=== PATIENT | male | born 1970 | race African-American/Black ===

== ENCOUNTER 2019-04-02 18:44 | Inpatient (IN) | payer MEDICAID ==
[~2019-04-02] VITALS: Ht 182.9 cm; Wt 63.5 kg
[2019-04-02] MEDS ORDERED: DILTIAZEM HCL 5MG/ML 5ML VIAL IV ONE ×3 (19:00→19:15)
[2019-04-02] MEDS ORDERED: ONDANSETRON HCL 4MG/2ML INJ ONE (19:02)
[2019-04-02] MEDS ORDERED: ONDANSETRON HCL 4MG/2ML INJ IV STA (19:14)
[2019-04-02] MEDS ORDERED: MORPHINE SULFATE 4 MG/ML CPJ (NOT FOR IM USE) IV STA (19:14)
[2019-04-02] MEDS ORDERED: PIPERACILLIN/TAZ 3.375G PREMIX 50 ML IV ONE (19:15)
[2019-04-02] MEDS ORDERED: VANCOMYCIN 1 G PREMIX 200 ML IV ONE (19:15)
[2019-04-02] MEDS ORDERED: SODIUM CHLORIDE 0.9% 1000ML BAG (SEPSIS BOLUS) IV ONE (19:15)
[2019-04-02] MEDS ORDERED: DILTIAZEM HCL 60MG TABLET PO ONE (19:30)
[2019-04-02 19:37] LABS: BASOPHILS % 0.4 % (0.0-2.0); CHLORIDE 100 mEq/L (98-107); HEMATOCRIT. 38.1 % (42.0-52.0); HEMOGLOBIN. 12.5 g/dL (14.0-18.0); LYMPHOCYTES % 7.8 % (20.0-50.0); MEAN CORPUSCULAR HEMOGLOBIN 30.7 pg (28.0-32.0); MEAN CORPUSCULAR VOLUME 93.3 fL (80.0-94.0); MEAN PLATELET VOLUME 9.8 fl (7.4-10.4); MONOCYTES % 9.3 % (2.0-8.0); NEUTROPHILS % 82.5 % (40.0-76.0); PLATELET 322 x1000/uL (130-400); RED BLOOD CELL COUNT 4.08 mill/uL (4.7-6.1); RED CELL DISTRIBUTION WIDTH 13.9 % (11.6-14.6)
[2019-04-02 19:39] LABS: INR 1.1; PARTIAL THROMBOPLASTIN TIME 30.8 sec (23.4-31.0); PROTHROMBIN TIME 11.4 sec (9.6-11.0)
[2019-04-02] MEDS ORDERED: POTASSIUM CHLORIDE 20MEQ TABLET SR PO ONE (20:45)
[2019-04-02] MEDS ORDERED: SODIUM CHLORIDE 0.9% 1,000 ML IV ONE ×2 (21:27→22:01)
[2019-04-02 22:49] LABS: *AMPHETAMINES SCREEN URINE NEGATIVE (NEGATIVE); *BARBITURATES SCREEN URINE NEGATIVE (NEGATIVE); *BENZODIAZEPINES SCREEN URINE NEGATIVE (NEGATIVE); *COCAINE SCREEN URINE NEGATIVE (NEGATIVE); CLARITY URINE TURBID (CLEAR); COLOR URINE YELLOW (YELLOW); KETONES URINE TRACE (NEGATIVE); LEUKOCYTE ESTERASE URINE 2+ (NEGATIVE); METHADONE URINE SCREEN NEGATIVE (NEGATIVE); NITRITE URINE POSITIVE (NEGATIVE); OCCULT BLOOD URINE 1+ (NEGATIVE); OPIATES URINE SCREEN PRESUMTIVE POSITIVE (NEGATIVE); PH URINE 5.5 (4.5-8.0); PROTEIN URINE TRACE (NEGATIVE); SPECIFIC GRAVITY URINE 1.015 (1.005-1.030)
[2019-04-02 22:50] LABS: CANNABINOID URINE SCREEN PRESUMTIVE POSITIVE (NEGATIVE); PHENCYCLIDINE URINE SCREEN PRESUMTIVE POSITIVE (NEGATIVE)
[2019-04-03] VITALS (13 sets, daily range): BP systolic 94–111; BP diastolic 45–65
[2019-04-03] MEDS: MORPHINE SULFATE 2 MG/ML CPJ (NOT FOR IM USE) IV PRN ×4 (01:23→19:02)
[2019-04-03] MEDS ORDERED: GABA-529 MT (04:48)
[2019-04-03] MEDS ORDERED: OXYC-100 MT (04:48)
[2019-04-03 06:50] LABS: BASOPHILS % 0.4 % (0.0-2.0); EOSINOPHILS % 0.1 % (0.0-5.0); HEMATOCRIT. 28.2 % (42.0-52.0); HEMOGLOBIN. 9.3 g/dL (14.0-18.0); LYMPHOCYTES % 8.8 % (20.0-50.0); MEAN CORPUSCULAR HEMOGLOBIN 30.9 pg (28.0-32.0); MEAN CORPUSCULAR VOLUME 93.7 fL (80.0-94.0); NEUTROPHILS % 81.7 % (40.0-76.0); PLATELET 218 x1000/uL (130-400); RED BLOOD CELL COUNT 3.01 mill/uL (4.7-6.1); RED CELL DISTRIBUTION WIDTH 13.7 % (11.6-14.6)
[2019-04-03 06:52] LABS: CHLORIDE 109 mEq/L (98-107)
[2019-04-03] MEDS ORDERED: PIPERACILLIN/TAZOBACTAM 3.375 G in DEXT 5% WATER 100 ML IV SCH (07:00)
[2019-04-03] MEDS ORDERED: ACETAMINOPHEN 325MG TABLET PO PRN (07:00)
[2019-04-03] MEDS ORDERED: POTASSIUM CHLORIDE 20MEQ TABLET SR PO NR (07:11)
[2019-04-03] MEDS ORDERED: VANCOMYCIN 1 G PREMIX 200 ML IV SCH (08:30)
[2019-04-03] MEDS: PIPERACILLIN/TAZOBACTAM 3.375 G in DEXT 5% WATER 100 ML IV SCH ×3 (08:39→22:03)
[2019-04-03] MEDS ORDERED: ASPIRIN 325MG EC TABLET PO SCH (09:00)
[2019-04-03] MEDS ORDERED: METOPROLOL TARTRATE 50MG TABLET PO SCH (09:00)
[2019-04-03] MEDS ORDERED: DIGOXIN 500MCG/2ML AMP IV SCH (11:15)
[2019-04-03] MEDS ORDERED: IPRATROPIUM BROMIDE (0.02%) 0.5MG/2.5ML NEB HHN PRN (12:00)
[2019-04-03] MEDS: DILTIAZEM HCL 30MG TABLET PO SCH ×2 (12:55→19:05)
[2019-04-03] MEDS ORDERED: DIGOXIN 500MCG/2ML AMP IV PRN (13:30)
[2019-04-03] MEDS: VANCOMYCIN 1 G PREMIX 200 ML IV SCH (18:52)
[2019-04-03] MEDS: DIGOXIN 500MCG/2ML AMP IV SCH (19:04)
[2019-04-03] MEDS: METOPROLOL TARTRATE 25MG TABLET PO SCH (21:54)
[2019-04-04] VITALS (11 sets, daily range): BP systolic 97–119; BP diastolic 52–83
[2019-04-04] MEDS: DILTIAZEM HCL 30MG TABLET PO SCH ×4 (00:25→18:00)
[2019-04-04] MEDS: VANCOMYCIN 1 G PREMIX 200 ML IV SCH (02:00)
[2019-04-04] MEDS: PIPERACILLIN/TAZOBACTAM 3.375 G in DEXT 5% WATER 100 ML IV SCH ×3 (02:43→18:09)
[2019-04-04 06:35] LABS: CHLORIDE 103 mEq/L (98-107)
[2019-04-04 06:38] LABS: BASOPHILS % 0.6 % (0.0-2.0); EOSINOPHILS % 1.7 % (0.0-5.0); LYMPHOCYTES % 12.9 % (20.0-50.0); MEAN CORPUSCULAR HEMOGLOBIN 30.5 pg (28.0-32.0); MEAN CORPUSCULAR VOLUME 92.4 fL (80.0-94.0); MONOCYTES % 9.5 % (2.0-8.0); NEUTROPHILS % 75.3 % (40.0-76.0); PLATELET 278 x1000/uL (130-400); RED CELL DISTRIBUTION WIDTH 13.7 % (11.6-14.6)
[2019-04-04 06:43] LABS: HEMATOCRIT. 32.4 % (42.0-52.0); HEMOGLOBIN. 10.7 g/dL (14.0-18.0)
[2019-04-04] MEDS ORDERED: POTASSIUM CHLORIDE 20MEQ/PACKET PO SCH (07:15)
[2019-04-04] MEDS: METOPROLOL TARTRATE 25MG TABLET PO SCH ×2 (09:00→20:56)
[2019-04-04] MEDS ORDERED: LORAZEPAM 2MG/ML CPJ IV SCH (10:45)
[2019-04-04] MEDS ORDERED: SODIUM BICARBONATE 4% (2.4MEQ) 5ML VIAL IV ONE (14:30)
[2019-04-04] MEDS ORDERED: LIDOCAINE HCL 1% 20ML VIAL (Pyxis) INJ ONE (14:31)
[2019-04-04] MEDS: VANCOMYCIN 1250MG in DEXTROSE 5% WATER 250ML IV SCH ×2 (15:37→22:40)
[2019-04-04] MEDS: MORPHINE SULFATE 2 MG/ML CPJ (NOT FOR IM USE) IV PRN ×2 (15:39→22:54)
[2019-04-04] MEDS: DIGOXIN 500MCG/2ML AMP IV SCH (18:09)
[2019-04-04] MEDS: MUPIROCIN 2% OINT 22GM NS SCH (20:57)
[2019-04-05] VITALS (20 sets, daily range): BP systolic 94–165; BP diastolic 52–108
[2019-04-05] MEDS: PIPERACILLIN/TAZOBACTAM 3.375 G in DEXT 5% WATER 100 ML IV SCH ×3 (00:13→10:55)
[2019-04-05] MEDS: DILTIAZEM HCL 30MG TABLET PO SCH ×5 (00:20→22:03)
[2019-04-05] MEDS: VANCOMYCIN 1250MG in DEXTROSE 5% WATER 250ML IV SCH ×3 (06:07→22:35)
[2019-04-05 07:01] LABS: BASOPHILS % 0.8 % (0.0-2.0); EOSINOPHILS % 1.6 % (0.0-5.0); LYMPHOCYTES % 12.8 % (20.0-50.0); MEAN CORPUSCULAR HEMOGLOBIN 30.8 pg (28.0-32.0); MEAN PLATELET VOLUME 9.2 fl (7.4-10.4); MONOCYTES % 10.7 % (2.0-8.0); NEUTROPHILS % 74.1 % (40.0-76.0); PLATELET 289 x1000/uL (130-400); RED BLOOD CELL COUNT 3.26 mill/uL (4.7-6.1); RED CELL DISTRIBUTION WIDTH 13.3 % (11.6-14.6)
[2019-04-05 07:53] LABS: CHLORIDE 102 mEq/L (98-107)
[2019-04-05] MEDS: METOPROLOL TARTRATE 25MG TABLET PO SCH ×2 (08:55→22:01)
[2019-04-05] MEDS: MUPIROCIN 2% OINT 22GM NS SCH ×2 (08:55→21:58)
[2019-04-05] MEDS: MORPHINE SULFATE 2 MG/ML CPJ (NOT FOR IM USE) IV PRN (09:37)
[2019-04-05] MEDS ORDERED: SODIUM BICARBONATE 4% (2.4MEQ) 5ML VIAL IV ONE (10:19)
[2019-04-05] MEDS ORDERED: LIDOCAINE HCL 1% 20ML VIAL (Pyxis) INJ ONE (10:19)
[2019-04-05] MEDS ORDERED: FENTANYL CITRATE/PF 50MCG/ML 2ML VIAL ONE (13:29)
[2019-04-05] MEDS ORDERED: FENTANYL CITRATE/PF 50MCG/ML 2ML VIAL IV ONE (14:45)
[2019-04-05] MEDS ORDERED: SORBITOL 70% SOLN 30ML PO NR (15:00)
[2019-04-05] MEDS: MEROPENEM 500MG in NORMAL SALINE 50ML IV SCH (18:05)
[2019-04-05] MEDS: DIGOXIN 500MCG/2ML AMP IV SCH (18:06)
[2019-04-05] MEDS: HYDROCODONE/ACETAMINOPHEN 10/325MG TABLET PO PRN (19:01)
[2019-04-06] VITALS: BP 98/56
[2019-04-06 04:00] VITALS: BP 137/65
[2019-04-06 04:32] LABS: BASOPHILS % 0.5 % (0.0-2.0); EOSINOPHILS % 0.9 % (0.0-5.0); HEMOGLOBIN. 10.5 g/dL (14.0-18.0); LYMPHOCYTES % 9.8 % (20.0-50.0); MEAN CORPUSCULAR HEMOGLOBIN 30.2 pg (28.0-32.0); MONOCYTES % 11.1 % (2.0-8.0); NEUTROPHILS % 77.7 % (40.0-76.0); RED BLOOD CELL COUNT 3.48 mill/uL (4.7-6.1); RED CELL DISTRIBUTION WIDTH 13.4 % (11.6-14.6)
[2019-04-06] MEDS: MEROPENEM 500MG in NORMAL SALINE 50ML IV SCH ×3 (05:11→18:34)
[2019-04-06] MEDS: VANCOMYCIN 1250MG in DEXTROSE 5% WATER 250ML IV SCH (05:28)
[2019-04-06] MEDS: DILTIAZEM HCL 30MG TABLET PO SCH ×3 (05:29→18:34)
[2019-04-06 05:39] LABS: MEAN PLATELET VOLUME 9.4 fl (7.4-10.4)
[2019-04-06 05:40] LABS: PLATELET 254 x1000/uL (130-400)
[2019-04-06 08:00] VITALS: BP 119/71
[2019-04-06] MEDS: MUPIROCIN 2% OINT 22GM NS SCH ×2 (09:42→21:51)
[2019-04-06] MEDS: METOPROLOL TARTRATE 25MG TABLET PO SCH ×2 (09:44→20:33)
[2019-04-06] MEDS: MORPHINE SULFATE 2 MG/ML CPJ (NOT FOR IM USE) IV PRN ×2 (10:00→20:32)
[2019-04-06] MEDS ORDERED: POTASSIUM CHLORIDE 20MEQ TABLET SR PO SCH (11:00)
[2019-04-06 12:00] VITALS: BP 120/80
[2019-04-06] MEDS: SODIUM CHLORIDE 0.9% 1,000 ML IV SCH ×2 (12:26→21:52)
[2019-04-06] MEDS: HYDROCODONE/ACETAMINOPHEN 10/325MG TABLET PO PRN (13:50)
[2019-04-06] MEDS: ONDANSETRON HCL 4MG/2ML INJ IV PRN (15:04)
[2019-04-06 16:00] VITALS: BP 107/57
[2019-04-06] MEDS ORDERED: VANCOMYCIN 1 G PREMIX 200 ML IV PRN (18:00)
[2019-04-06] MEDS: DIGOXIN 500MCG/2ML AMP IV SCH (18:34)
[2019-04-06 20:00] VITALS: BP 108/59
[2019-04-07] VITALS (7 sets, daily range): BP systolic 100–128; BP diastolic 48–69
[2019-04-07] MEDS: DILTIAZEM HCL 30MG TABLET PO SCH ×4 (00:31→21:39)
[2019-04-07] MEDS: MEROPENEM 500MG in NORMAL SALINE 50ML IV SCH ×3 (02:06→17:11)
[2019-04-07] MEDS: HYDROCODONE/ACETAMINOPHEN 10/325MG TABLET PO PRN ×2 (02:10→11:48)
[2019-04-07 06:42] LABS: BASOPHILS % 0.6 % (0.0-2.0); EOSINOPHILS % 1.1 % (0.0-5.0); HEMOGLOBIN. 10.3 g/dL (14.0-18.0); LYMPHOCYTES % 7.4 % (20.0-50.0); MEAN CORPUSCULAR HEMOGLOBIN 30.7 pg (28.0-32.0); MEAN CORPUSCULAR VOLUME 92.4 fL (80.0-94.0); MEAN PLATELET VOLUME 8.6 fl (7.4-10.4); MONOCYTES % 11.2 % (2.0-8.0); NEUTROPHILS % 79.7 % (40.0-76.0); PLATELET 390 x1000/uL (130-400); RED BLOOD CELL COUNT 3.36 mill/uL (4.7-6.1); RED CELL DISTRIBUTION WIDTH 13.8 % (11.6-14.6)
[2019-04-07] MEDS: SODIUM CHLORIDE 0.9% 1,000 ML IV SCH ×2 (07:00→13:22)
[2019-04-07 07:52] LABS: DIGOXIN 1.4 ng/mL (0.9-2.0)
[2019-04-07] MEDS: MUPIROCIN 2% OINT 22GM NS SCH ×2 (08:16→21:39)
[2019-04-07] MEDS: MORPHINE SULFATE 2 MG/ML CPJ (NOT FOR IM USE) IV PRN ×2 (08:16→17:06)
[2019-04-07] MEDS: METOPROLOL TARTRATE 25MG TABLET PO SCH ×2 (08:17→21:38)
[2019-04-07] MEDS: ONDANSETRON HCL 4MG/2ML INJ IV PRN (08:33)
[2019-04-07] MEDS ORDERED: SORBITOL 70% SOLN 30ML PO SCH (12:00)
[2019-04-07] MEDS: DOCUSATE SODIUM 250MG CAPSULE PO SCH (13:23)
[2019-04-07] MEDS: ENOXAPARIN 30MG/0.3ML SYR SUBCUT SCH ×2 (15:00→17:11)
[2019-04-07] MEDS ORDERED: DIGOXIN 500MCG/2ML AMP IV SCH (18:00)
[2019-04-07] MEDS ORDERED: NA PHOS,M-B/NA PHOS,DI-BA ENEMA 118ML PR NR (23:00)
[2019-04-08] VITALS (7 sets, daily range): BP systolic 105–132; BP diastolic 55–75
[2019-04-08] MEDS: MEROPENEM 500MG in NORMAL SALINE 50ML IV SCH ×3 (01:07→18:53)
[2019-04-08] MEDS: SODIUM CHLORIDE 0.9% 1,000 ML IV SCH ×2 (01:07→18:58)
[2019-04-08 06:12] LABS: PHOSPHORUS 5.2 mg/dL (2.5-4.9)
[2019-04-08 06:41] LABS: BASOPHILS % 0.7 % (0.0-2.0); EOSINOPHILS % 0.6 % (0.0-5.0); HEMATOCRIT. 31.3 % (42.0-52.0); HEMOGLOBIN. 10.5 g/dL (14.0-18.0); LYMPHOCYTES % 7.6 % (20.0-50.0); MEAN CORPUSCULAR VOLUME 91.9 fL (80.0-94.0); MEAN PLATELET VOLUME 8.4 fl (7.4-10.4); MONOCYTES % 11.1 % (2.0-8.0); PLATELET 415 x1000/uL (130-400); RED BLOOD CELL COUNT 3.41 mill/uL (4.7-6.1); RED CELL DISTRIBUTION WIDTH 13.7 % (11.6-14.6)
[2019-04-08] MEDS: DILTIAZEM HCL 30MG TABLET PO SCH ×3 (06:44→22:47)
[2019-04-08] MEDS: METOPROLOL TARTRATE 25MG TABLET PO SCH ×2 (09:00→21:20)
[2019-04-08] MEDS: ONDANSETRON HCL 4MG/2ML INJ IV PRN (09:39)
[2019-04-08] MEDS: MUPIROCIN 2% OINT 22GM NS SCH ×2 (09:40→21:20)
[2019-04-08] MEDS: DOCUSATE SODIUM 250MG CAPSULE PO SCH (10:54)
[2019-04-08] MEDS: HYDROCODONE/ACETAMINOPHEN 10/325MG TABLET PO PRN (12:58)
[2019-04-08] MEDS ORDERED: LIDOCAINE HCL 1% 20ML VIAL (Pyxis) INJ ONE (14:35)
[2019-04-08] MEDS ORDERED: SODIUM BICARBONATE 4% (2.4MEQ) 5ML VIAL IV ONE (14:35)
[2019-04-08] MEDS: ENOXAPARIN 30MG/0.3ML SYR SUBCUT SCH (15:00)
[2019-04-08 15:33] LABS: CLARITY URINE CLEAR (CLEAR); COLOR URINE YELLOW (YELLOW); KETONES URINE NEGATIVE (NEGATIVE); LEUKOCYTE ESTERASE URINE 1+ (NEGATIVE); NITRITE URINE NEGATIVE (NEGATIVE); OCCULT BLOOD URINE 2+ (NEGATIVE); PROTEIN URINE NEGATIVE (NEGATIVE); SPECIFIC GRAVITY URINE 1.005 (1.005-1.030); UROBILINOGEN URINE 0.2 E.U./dL (0.2-1.0)
[2019-04-08] MEDS: MORPHINE SULFATE 2 MG/ML CPJ (NOT FOR IM USE) IV PRN (21:38)
[2019-04-08] MEDS: LINEZOLID 600MG TABLET PO SCH (22:48)
[2019-04-09] VITALS: BP 121/72
[2019-04-09] MEDS: MEROPENEM 500MG in NORMAL SALINE 50ML IV SCH ×3 (01:44→17:03)
[2019-04-09] MEDS: SODIUM CHLORIDE 0.9% 1,000 ML IV SCH ×3 (01:44→19:49)
[2019-04-09] MEDS: MORPHINE SULFATE 2 MG/ML CPJ (NOT FOR IM USE) IV PRN ×2 (01:46→09:06)
[2019-04-09 04:00] VITALS: BP 121/72
[2019-04-09] MEDS: DILTIAZEM HCL 30MG TABLET PO SCH ×3 (06:04→21:14)
[2019-04-09 08:00] VITALS: BP 104/57
[2019-04-09 08:55] LABS: BASOPHILS % 0.8 % (0.0-2.0); EOSINOPHILS % 0.9 % (0.0-5.0); HEMATOCRIT. 30.1 % (42.0-52.0); LYMPHOCYTES % 9.1 % (20.0-50.0); MEAN CORPUSCULAR HEMOGLOBIN 30.6 pg (28.0-32.0); MEAN PLATELET VOLUME 8.1 fl (7.4-10.4); MONOCYTES % 9.1 % (2.0-8.0); NEUTROPHILS % 80.1 % (40.0-76.0); PLATELET 404 x1000/uL (130-400); RED BLOOD CELL COUNT 3.27 mill/uL (4.7-6.1); RED CELL DISTRIBUTION WIDTH 13.7 % (11.6-14.6)
[2019-04-09] MEDS: DOCUSATE SODIUM 250MG CAPSULE PO SCH (09:04)
[2019-04-09] MEDS: METOPROLOL TARTRATE 25MG TABLET PO SCH ×2 (09:04→21:14)
[2019-04-09] MEDS: MUPIROCIN 2% OINT 22GM NS SCH (09:05)
[2019-04-09] MEDS: LINEZOLID 600MG TABLET PO SCH ×2 (09:05→21:15)
[2019-04-09 09:07] LABS: PHOSPHORUS 5.9 mg/dL (2.5-4.9)
[2019-04-09 12:00] VITALS: BP 102/55
[2019-04-09] MEDS: ONDANSETRON HCL 4MG/2ML INJ IV PRN (13:37)
[2019-04-09] MEDS: ENOXAPARIN 30MG/0.3ML SYR SUBCUT SCH (15:00)
[2019-04-09 16:00] VITALS: BP 125/62
[2019-04-09] MEDS ORDERED: NA PHOS,M-B/NA PHOS,DI-BA ENEMA 118ML PR NR (18:45)
[2019-04-09 20:00] VITALS: BP 109/76
[2019-04-10] VITALS: BP 123/60
[2019-04-10] MEDS: HYDROCODONE/ACETAMINOPHEN 10/325MG TABLET PO PRN ×2 (01:32→09:39)
[2019-04-10] MEDS: MEROPENEM 500MG in NORMAL SALINE 50ML IV SCH ×3 (02:32→18:00)
[2019-04-10 04:00] VITALS: BP 124/69
[2019-04-10] MEDS: SODIUM CHLORIDE 0.9% 1,000 ML IV SCH ×2 (04:35→14:18)
[2019-04-10] MEDS: DILTIAZEM HCL 30MG TABLET PO SCH ×3 (05:29→22:14)
[2019-04-10 07:22] LABS: BASOPHILS % 0.4 % (0.0-2.0); EOSINOPHILS % 1.4 % (0.0-5.0); HEMATOCRIT. 28.9 % (42.0-52.0); HEMOGLOBIN. 9.4 g/dL (14.0-18.0); MEAN CORPUSCULAR HEMOGLOBIN 29.7 pg (28.0-32.0); MEAN CORPUSCULAR VOLUME 90.9 fL (80.0-94.0); MEAN PLATELET VOLUME 7.6 fl (7.4-10.4); NEUTROPHILS % 79.2 % (40.0-76.0); PLATELET 393 x1000/uL (130-400); RED BLOOD CELL COUNT 3.18 mill/uL (4.7-6.1); RED CELL DISTRIBUTION WIDTH 13.8 % (11.6-14.6)
[2019-04-10 07:36] LABS: PHOSPHORUS 5.8 mg/dL (2.5-4.9)
[2019-04-10 08:00] VITALS: BP 135/75
[2019-04-10] MEDS: DOCUSATE SODIUM 250MG CAPSULE PO SCH (09:38)
[2019-04-10] MEDS: METOPROLOL TARTRATE 25MG TABLET PO SCH ×2 (09:39→21:14)
[2019-04-10] MEDS: LINEZOLID 600MG TABLET PO SCH ×2 (09:42→21:13)
[2019-04-10 12:00] VITALS: BP 115/65
[2019-04-10] MEDS: ENOXAPARIN 30MG/0.3ML SYR SUBCUT SCH (15:27)
[2019-04-10] MEDS: MORPHINE SULFATE 2 MG/ML CPJ (NOT FOR IM USE) IV PRN ×2 (15:37→22:18)
[2019-04-10 16:00] VITALS: BP 106/66
[2019-04-10 20:00] VITALS: BP 116/66
[2019-04-11] VITALS: BP 123/81
[2019-04-11 04:00] VITALS: BP 120/73
[2019-04-11] MEDS: MORPHINE SULFATE 2 MG/ML CPJ (NOT FOR IM USE) IV PRN ×4 (04:38→22:33)
[2019-04-11] MEDS: DILTIAZEM HCL 30MG TABLET PO SCH ×3 (05:09→22:39)
[2019-04-11 06:19] LABS: BASOPHILS % 0.6 % (0.0-2.0); EOSINOPHILS % 1.4 % (0.0-5.0); HEMATOCRIT. 27.9 % (42.0-52.0); HEMOGLOBIN. 9.3 g/dL (14.0-18.0); LYMPHOCYTES % 12.6 % (20.0-50.0); MEAN CORPUSCULAR HEMOGLOBIN 30.4 pg (28.0-32.0); MEAN CORPUSCULAR VOLUME 91.6 fL (80.0-94.0); MEAN PLATELET VOLUME 7.9 fl (7.4-10.4); MONOCYTES % 8.4 % (2.0-8.0); PLATELET 362 x1000/uL (130-400); RED BLOOD CELL COUNT 3.05 mill/uL (4.7-6.1)
[2019-04-11 08:00] VITALS: BP 142/77
[2019-04-11] MEDS: METOPROLOL TARTRATE 25MG TABLET PO SCH ×2 (08:56→21:21)
[2019-04-11] MEDS: DOCUSATE SODIUM 250MG CAPSULE PO SCH ×2 (08:56→09:00)
[2019-04-11] MEDS: LINEZOLID 600MG TABLET PO SCH ×2 (08:56→21:23)
[2019-04-11 12:00] VITALS: BP_SYST 116; BP_SYST 141; BP_DIAS 83; BP_DIAS 84
[2019-04-11] MEDS ORDERED: MEROPENEM 500MG in NORMAL SALINE 50ML IV SCH (14:00)
[2019-04-11] MEDS ORDERED: LOPERAMIDE 2 MG/10 ML UDC PO PRN (15:00)
[2019-04-11] MEDS: ENOXAPARIN 30MG/0.3ML SYR SUBCUT SCH (15:04)
[2019-04-11 16:00] VITALS: BP 141/83
[2019-04-11 20:00] VITALS: BP 146/80
[2019-04-12] VITALS: BP 145/79
[2019-04-12 04:00] VITALS: BP 128/80
[2019-04-12] MEDS: SODIUM CHLORIDE 0.9% 1,000 ML IV SCH ×3 (05:41→17:18)
[2019-04-12] MEDS: DILTIAZEM HCL 30MG TABLET PO SCH ×2 (06:00→14:41)
[2019-04-12] MEDS: MORPHINE SULFATE 2 MG/ML CPJ (NOT FOR IM USE) IV PRN ×3 (06:01→20:41)
[2019-04-12 08:00] VITALS: BP 121/86
[2019-04-12] MEDS: LINEZOLID 600MG TABLET PO SCH (09:30)
[2019-04-12] MEDS: METOPROLOL TARTRATE 25MG TABLET PO SCH (09:30)
[2019-04-12 11:16] LABS: BASOPHILS % 0.7 % (0.0-2.0); EOSINOPHILS % 1.4 % (0.0-5.0); HEMOGLOBIN. 9.8 g/dL (14.0-18.0); LYMPHOCYTES % 10.9 % (20.0-50.0); MEAN CORPUSCULAR HEMOGLOBIN 29.8 pg (28.0-32.0); MEAN CORPUSCULAR VOLUME 91.1 fL (80.0-94.0); MEAN PLATELET VOLUME 7.7 fl (7.4-10.4); PLATELET 330 x1000/uL (130-400); RED CELL DISTRIBUTION WIDTH 13.9 % (11.6-14.6)
[2019-04-12 12:25] VITALS: BP 137/88
[2019-04-12] MEDS: DOXYCYCLINE HYCLATE 100MG CAPSULE PO SCH (14:40)
[2019-04-12] MEDS: ENOXAPARIN 40MG/0.4ML SYR SUBCUT SCH (14:41)
[2019-04-12 16:10] VITALS: BP 132/84
[2019-04-12] MEDS: CEFTRIAXONE 2 G in DEXTROSE 5% WATER 50 ML IV SCH (17:18)
[2019-04-12 20:00] VITALS: BP 116/79
[2019-04-12] MEDS: ONDANSETRON HCL 4MG/2ML INJ IV PRN (20:40)
[2019-04-13] VITALS (7 sets, daily range): BP systolic 102–141; BP diastolic 65–91
[2019-04-13] MEDS: METOPROLOL TARTRATE 25MG TABLET PO SCH ×2 (00:06→08:01)
[2019-04-13] MEDS: DILTIAZEM HCL 30MG TABLET PO SCH ×3 (00:06→13:27)
[2019-04-13] MEDS: DOXYCYCLINE HYCLATE 100MG CAPSULE PO SCH ×2 (00:06→08:01)
[2019-04-13] MEDS: MORPHINE SULFATE 2 MG/ML CPJ (NOT FOR IM USE) IV PRN ×2 (02:37→09:35)
[2019-04-13] MEDS: SODIUM CHLORIDE 0.9% 1,000 ML IV SCH (04:53)
[2019-04-13 05:36] LABS: BASOPHILS % 0.9 % (0.0-2.0); EOSINOPHILS % 1.5 % (0.0-5.0); HEMATOCRIT. 27.6 % (42.0-52.0); HEMOGLOBIN. 9.1 g/dL (14.0-18.0); LYMPHOCYTES % 14.1 % (20.0-50.0); MEAN CORPUSCULAR VOLUME 90.9 fL (80.0-94.0); MEAN PLATELET VOLUME 7.5 fl (7.4-10.4); MONOCYTES % 7.7 % (2.0-8.0); NEUTROPHILS % 75.8 % (40.0-76.0); PLATELET 299 x1000/uL (130-400); RED BLOOD CELL COUNT 3.04 mill/uL (4.7-6.1); RED CELL DISTRIBUTION WIDTH 13.9 % (11.6-14.6)
[2019-04-13 05:52] LABS: PHOSPHORUS 4.6 mg/dL (2.5-4.9)
[2019-04-13] MEDS ORDERED: SODIUM CHLORIDE 0.45% 1,000 ML IV SCH (09:45)
[2019-04-13] MEDS ORDERED: MAGNESIUM 2 G PREMIX 50 ML IV NR (11:00)
[2019-04-13] MEDS: CEFTRIAXONE 2 G in DEXTROSE 5% WATER 50 ML IV SCH (15:34)
[2019-04-13] MEDS: ENOXAPARIN 40MG/0.4ML SYR SUBCUT SCH (15:34)
[2019-04-13] MEDS ORDERED: MORPHINE SULFATE 2 MG/ML CPJ (NOT FOR IM USE) IV PRN (16:00)
[2019-04-13] MEDS ORDERED: HYDROCODONE/ACETAMINOPHEN 10/325MG TABLET PO PRN (19:00)
== END 2019-04-13 19:25 | DRG 710 ==
LOC: ER 18:44 → 3WST 21:37 → EDBEDREQTM 21:38 → EDBEDREQ 21:38 → ENRESERV 22:01 → 6WST 04-05 10:39 → 6EST 04-08 21:57
PROVIDERS: ADMIT Internal Medicine; ATTEND Internal Medicine
PROC: 05HY33Z Insertion of Infusion Device into Upper Vein, Percutaneous Approach (ICD-10-PCS; 2019-04-04)
PROC: B54NZZA Ultrasonography of Left Upper Extremity Veins, Guidance (ICD-10-PCS; 2019-04-04)
PROC: 0S993ZX Drainage of Right Hip Joint, Percutaneous Approach, Diagnostic (ICD-10-PCS; 2019-04-04)
PROC: 0S993ZX Drainage of Right Hip Joint, Percutaneous Approach, Diagnostic (ICD-10-PCS; 2019-04-05)
PROC: 0QB10ZZ Excision of Sacrum, Open Approach (ICD-10-PCS; 2019-04-06)
PROC: 02HV33Z Insertion of Infusion Device into Superior Vena Cava, Percutaneous Approach (ICD-10-PCS; 2019-04-08)
PROC: B5181ZA Fluoroscopy of Superior Vena Cava using Low Osmolar Contrast, Guidance (ICD-10-PCS; 2019-04-08)
PROC: B548ZZA Ultrasonography of Superior Vena Cava, Guidance (ICD-10-PCS; 2019-04-08)
PROC: 0KBW0ZZ Excision of Left Foot Muscle, Open Approach (ICD-10-PCS; principal; 2019-04-12)
PROC: 0QB10ZZ Excision of Sacrum, Open Approach (ICD-10-PCS; 2019-04-13)
DX: A41.9 Sepsis, unspecified organism (principal); N17.0 Acute kidney failure with tubular necrosis; E43 Unspecified severe protein-calorie malnutrition; J18.9 Pneumonia, unspecified organism; L89.314 Pressure ulcer of right buttock, stage 4; G82.20 Paraplegia, unspecified; I47.1 Supraventricular tachycardia; I48.2 Chronic atrial fibrillation; N39.0 Urinary tract infection, site not specified; J44.9 Chronic obstructive pulmonary disease, unspecified; E87.6 Hypokalemia; F12.90 Cannabis use, unspecified, uncomplicated; G89.4 Chronic pain syndrome; D64.9 Anemia, unspecified; F17.200 Nicotine dependence, unspecified, uncomplicated; L97.529 Non-pressure chronic ulcer of other part of left foot with unspecified severity; Z74.01 Bed confinement status; Z82.49 Family history of ischemic heart disease and other diseases of the circulatory system; Z91.19 Patient's noncompliance with other medical treatment and regimen; Z95.828 Presence of other vascular implants and grafts; Z99.3 Dependence on wheelchair; Z71.6 Tobacco abuse counseling; Z68.1 Body mass index [BMI] 19.9 or less, adult; B96.20 Unspecified Escherichia coli [E. coli] as the cause of diseases classified elsewhere; F16.129 Hallucinogen abuse with intoxication, unspecified; I13.10 Hypertensive heart and chronic kidney disease without heart failure, with stage 1 through stage 4 chronic kidney disease, or unspecified chronic kidney disease; M21.951 Unspecified acquired deformity of right thigh; M21.952 Unspecified acquired deformity of left thigh; I48.1 Persistent atrial fibrillation; N18.9 Chronic kidney disease, unspecified; N31.9 Neuromuscular dysfunction of bladder, unspecified
CPT/HCPCS: 20611; 36415; 36573; 71045; 74176; 76770; 77012; 80048; 80162; 80202; 80305; 81003; 82550; 83605; 83735; 84100; 84134; 84145; 84443; 84484; 85651; 86140; 87070; 87077; 87186; 89060; 93005; 93306; 93970; 96365; 96375; 99291; C1725; J0696; J1160; J1650; J2185; J2270; J2405; J2543; J3010; J3370; J3475; J3490; J7030; J7060